=== PATIENT | female | born 1980 | race Caucasian/White ===

== ENCOUNTER 2016-10-29 02:44 | Emergency (ER) | payer OTHER ==
[~2016-10-29] VITALS: Ht 162.6 cm; Wt 85.7 kg
[2016-10-29 03:21] LABS: HCG UR OBC PASS
[2016-10-29] MEDS ORDERED: KETOROLAC 30 MG/1 ML IVPush ONE (03:30)
[2016-10-29] MEDS ORDERED: ONDANSETRON 2MG/ML, 2ML IVPush ONE (03:30)
[2016-10-29] MEDS ORDERED: SODIUM CHLORIDE 0.9% 1,000ML IVBOLUS ONE (03:30)
[2016-10-29] MEDS ORDERED: SODIUM CHLORIDE FLUSH 10ML SYR IVF ONE (03:30)
[2016-10-29] MEDS ORDERED: HYDROmorphone 1 MG/ML, 1ML ONE ×2 (03:39→04:10)
[2016-10-29] MEDS ORDERED: ONDANSETRON 2MG/ML, 2ML ONE (03:39)
[2016-10-29 03:44] LABS: ASPARTATE AMINO TRANSFERASE 19 U/L (15-37); BLOOD UREA NITROGEN 14 mg/dL (7-18)
[2016-10-29] MEDS: HYDROmorphone 1 MG/ML, 1ML IVPush PRN ×2 (03:54→04:16)
[2016-10-29] MEDS ORDERED: KETOROLAC 30 MG/1 ML ONE (04:11)
[2016-10-29] MEDS ORDERED: HYDROmorphone 1 MG/ML, 1ML IVPush PRN (04:30)
[2016-10-29] MEDS ORDERED: ONDANSETRON ODT 4 MG ONE (04:47)
[2016-10-29 04:50] VITALS: BP 98/53
== END 2016-10-29 04:52 | disposition home or self-care (01) ==
LOC: ED 03:42
DX: N13.2 Hydronephrosis with renal and ureteral calculous obstruction (principal)
CPT/HCPCS: 36415; 74176; 80053; 81001; 81025; 84703; 85025; 96374; 96375; 99285; J1170; J1885; J2405; J7030

== ENCOUNTER → 2016-11-14 | Outpatient (CLI) | payer OTHER | END | disposition home or self-care (01) | LOC: CFH 15:31 | PROVIDERS: ATTEND Physician Assistant | DX: N20.0 Calculus of kidney (principal) | CPT/HCPCS: 74000 ==

== ENCOUNTER → 2017-02-15 | Outpatient (CLI) | payer OTHER | END | disposition home or self-care (01) | LOC: CFH 15:26 | PROVIDERS: ATTEND Urology | DX: Z87.442 Personal history of urinary calculi (principal) | CPT/HCPCS: 74000 ==

== ENCOUNTER → 2018-05-28 | Outpatient (CLI) | payer OTHER | END | disposition home or self-care (01) | LOC: CFH 13:14 | PROVIDERS: ATTEND Urology | DX: N20.0 Calculus of kidney (principal) | CPT/HCPCS: 74176 ==

== ENCOUNTER 2019-07-02 22:38 | Emergency (ER) | payer OTHER ==
[~2019-07-02] VITALS: Ht 162.6 cm; Wt 91.7 kg
--- NOTE | 2019-07-02 23:10 | NUR ---
ASSUMED CARE OF PATIENT. PATIENT REPORTS PALPITATIONS. PT SEE BY DR MERRITT. CLINICAL QUALITY ASSURANCE SPECIALIST ON. NSR NOTED. VS STABLE. WILL CONTNIUE TO MONITOR.
[2019-07-02 23:26] LABS: BASOPHILS # (AUTO) 0.05 x10^3/uL (0-0.1); BASOPHILS % (AUTO) 1 % (0-1); EOSINOPHILS # (AUTO) 0.34 x10^3/uL (0-0.4); EOSINOPHILS % (AUTO) 4 % (1-7); LYMPHOCYTES # (AUTO) 3.85 x10^3/uL (1-3.4); LYMPHOCYTES % (AUTO) 40 % (22-44); MD NO; MEAN CORPUSCULAR HEMOGLOBIN 30.1 pg (27.0-34.8); MEAN PLATELET VOLUME 7.1 fL (7.4-10.4); MONOCYTES # (AUTO) 1.37 x10^3/uL (0.2-0.8); MONOCYTES % (AUTO) 14 % (2-9); NEUTROPHILS # (AUTO) 3.93 x10^3/uL (1.8-6.8); NEUTROPHILS % (AUTO) 41 % (42-75); PLATELET COUNT 459 x10^3/uL (130-400); RED CELL DISTRIBUTION WIDTH 14.6 % (9.6-15.2)
[2019-07-02 23:35] LABS: ALANINE AMINOTRANSFERASE 24 U/L (12-78); ALBUMIN 3.5 g/dL (3.4-5.0); ANION GAP 6 mmol/L (5-15); CALCIUM 8.5 mg/dL (8.5-10.1); CHLORIDE 107 mmol/L (98-107); CREATININE 0.86 mg/dL (0.55-1.02)
[2019-07-02 23:37] LABS: ALKALINE PHOSPHATASE 56 U/L (45-117); BILIRUBIN,TOTAL 0.3 mg/dL (0.2-1.0); TOTAL PROTEIN 6.8 g/dL (6.4-8.2)
--- NOTE | 2019-07-02 23:56 | NUR ---
DR MERRITT IN ROOM UPDATING PATIENT.
[2019-07-03 00:06] VITALS: BP 116/64
== END 2019-07-03 00:09 | disposition home or self-care (01) ==
LOC: ED 22:54
DX: R00.2 Palpitations (principal); Z72.89 Other problems related to lifestyle
CPT/HCPCS: 36415; 80053; 80307; 83735; 85025; 93005; 99284

== ENCOUNTER → 2019-09-18 | Outpatient (CLI) | payer OTHER | END | disposition home or self-care (01) | LOC: CFH 08:25 | PROVIDERS: ATTEND Urology | DX: N20.0 Calculus of kidney (principal) | CPT/HCPCS: 74176 ==

== ENCOUNTER → 2020-01-13 | Outpatient (CLI) | payer OTHER | END | disposition home or self-care (01) | LOC: CFH 13:32 | PROVIDERS: ATTEND Obstetrics & Gynecology | DX: R92.2 Inconclusive mammogram (principal) | CPT/HCPCS: 76641 ==

== ENCOUNTER 2021-01-03 20:22 | Emergency (ER) | payer OTHER ==
[~2021-01-03] VITALS: Ht 162.6 cm; Wt 80.9 kg
[2021-01-03 20:39] VITALS: BP 115/73
--- NOTE | 2021-01-03 21:19 | NUR ---
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
[2021-01-03] MEDS ORDERED: ACETAMINOPHEN 500 MG TABLET PO ONE (21:30)
[2021-01-03] MEDS ORDERED: DEXAMETHASONE 4 MG TABLET PO ONE (21:30)
[2021-01-03] MEDS ORDERED: KETOROLAC 30 MG/1 ML ONE (21:49)
[2021-01-03] MEDS ORDERED: KETOROLAC 30 MG/1 ML IM ONE (22:00)
[2021-01-03 22:14] LABS: BASOPHILS % (AUTO) 1 % (0-1); EOSINOPHILS % (AUTO) 4 % (1-7); LYMPHOCYTES % (AUTO) 34 % (22-44); MEAN CORPUSCULAR HEMOGLOBIN 31.6 pg (27.0-34.8); MEAN CORPUSCULAR HGB CONC 34.1 g/dL (32.4-35.8); MEAN PLATELET VOLUME 6.9 fL (7.4-10.4); MONOCYTES % (AUTO) 13 % (2-9); NEUTROPHILS % (AUTO) 49 % (42-75); PLATELET COUNT 358 x10^3/uL (130-400); RED CELL DISTRIBUTION WIDTH 14.5 % (9.6-15.2)
[2021-01-03 22:21] LABS: ALBUMIN 3.2 g/dL (3.4-5.0); ANION GAP 5 mmol/L (5-15); CALCIUM 8.1 mg/dL (8.5-10.1); CHLORIDE 107 mmol/L (98-107); CREATININE 0.89 mg/dL (0.55-1.02)
[2021-01-03 22:21] LABS: MICROSCOPIC NOT IND
--- NOTE | 2021-01-03 23:46 | NUR ---
LEFT FLANK PAIN WITH HX KIDNEY STONES. DENIES URINARY SYMPTOMS.
--- NOTE | 2021-01-04 00:50 | NUR ---
REPORT FROM DARLIN STRAUSS
== END 2021-01-04 01:24 | disposition home or self-care (01) ==
LOC: ED 21:42
DX: M54.5 Low back pain (principal); M54.6 Pain in thoracic spine; R10.9 Unspecified abdominal pain
CPT/HCPCS: 36415; 76770; 80048; 81003; 82040; 84703; 85025; 96372; 99284; J1885